=== PATIENT | female | born 1985 | race Caucasian/White ===

== ENCOUNTER → 2017-08-14 | Outpatient (CLI) | payer SELFPAY ==
[~2017-08-14] MED LIST: DIASTAT ACUDIAL10 MG PR; DILANTIN 100MG100 MG PO; KETOROLAC10 MG PO; LORTAB 500 MG-71 TAB PO; MEDROL 4MG. DOSE4 MG PO; PERCOCET 10 MG1 EACH PO; POTASSIUM CHLO10 ME3 PO; PRENATAL1 TA2 PO; TYLENOL ES500 M1 PO; XANAX 1MG TABLET1 MG PO; ZOFRAN ODT8 MG PO
[2017-08-14 14:10] LABS: AMPHETAMINES/METAMPHETAMINES NEGATIVE ng/mL (<1000)
== END ==
LOC: LAB 13:14
PROVIDERS: Emergency Medicine
DX: Z79.899 Other long term (current) drug therapy (principal)

== ENCOUNTER 2017-10-04 09:31 | Emergency (ER) | payer MEDICAID ==
[~2017-10-04] VITALS: Ht 165.1 cm; Wt 66.2 kg
[2017-10-04] MEDS ORDERED: BUPRENORPHINE H1 TAB SL (09:52)
[2017-10-04] MEDS ORDERED: GABAPENTIN300 M1 PO (09:53)
[2017-10-04] MEDS ORDERED: MOTRIN 600MG.600 MG PO (09:53)
[2017-10-04] MEDS ORDERED: AMITRIPTYLINE 550 MG PO (09:54)
[2017-10-04] MEDS ORDERED: VENLAFAXINE HYD75 M1 PO (09:56)
[2017-10-04] MEDS ORDERED: VENLAFAXINE HY150 MG PO (09:56)
[2017-10-04] MEDS ORDERED: LEVETIRACETAM1000 MG PO (09:57)
[2017-10-04] MEDS ORDERED: TERAZOSIN HCL1 MG PO (09:58)
--- OUTSIDE RECORDS SUMMARY | 2017-10-04 09:59 | External Medical Summary Rpt | CCD ---
Author Author , DHARA JULES Address Unknown Phone [email or web address] Providers Care Binder Layer Name Role Phone CLARIBEL MILLS MD, Unavailable Unavailable CLARIBEL MILLS MD Purpose Continuity of Care Document - 01-23-2012 through 2016 Problems Code Diagnosis DOS Provider Status 780.39 780.39 07-01-2013 [facility] Allergies, Adverse Reactions, Alerts Type Drug Allergy Propensity to adverse reactions to drug Adverse Reaction to Substance Substance Reaction Severity Contrast Media, ANAPHYLAXIS Severe Iodine Related Morphine ANGRY Unknown Medications Na ND Rx Da Fi Fi Am Da Di Ph RX Ph St me C No te ll ll ou ys ag ar # ys at rm s nt no ma ic us Or Da si cy ia de te s n re d LO 00 08 0 No RA 64 -2 ZE 16 8- Lo PA 04 20 ng M 82 13 er 2 5 MG Ac /M ti L ve AL Sa 63 08 0 No li 80 -2 ne 70 8- Lo 10 20 ng Fl 07 13 er us 5 h Ac 10 ti ML ve Sy ri ng e KE 00 08 0 No TO 40 -2 RO 93 8- Lo LA 79 20 ng C 50 13 er 30 1 Ac MG ti /M ve L AL PH 00 08 0 No EN 64 -2 YT 12 8- Lo OI 55 20 ng N 54 13 er 50 5 Ac MG ti /M ve L AL SO 00 08 0 No DI 40 -2 UM 97 8- Lo 98 20 ng CH 43 13 er LO 7 RI Ac DE ti ve 0. 9% SO AVILA TI ON Sa 63 08 0 No li 80 -2 ne 70 8- Lo 10 20 ng Fl 07 13 er us 5 h Ac 10 ti ML ve Sy ri ng e Sa 63 08 0 No li 80 -2 ne 70 8- Lo 10 20 ng Fl 07 13 er us 5 h Ac 10 ti ML ve Sy ri ng e Vital Signs 07-01-2013 20:17 Name Value Interpretat Reference Comment ion Range Body 98.4 [degF] Temperature BP 50 mm[Hg] Diastolic BP Systolic 100 mm[Hg] Heart 82 /min Rate/Pulse O2% 98 % Respiratory 18 /min Rate 07-01-2013 17:48 Name Value Interpretat Reference Comment ion Range BP 55 mm[Hg] Diastolic BP Systolic 113 mm[Hg] Heart 98 /min Rate/Pulse O2% 95 % Respiratory 16 /min Rate Results Labs Lab Lab Date Result Refere Interp Status Commen Order Detail nces retati t Range on Urine 9-analyte drugs of abuse screening (08-14-2017 11:30) Comment: Positive urine drug screen samples are stored for 7 days. Comment: Contact the Lab if confirmation of positives is needed. Urine NEGATIV <1000 complet ampheta 017 E ed mine 11:30 NEGATIV screeni E L ng test ng/mL Urine = <200 complet barbitu 017 NEGATIV ed rates 11:30 E ng/mL measure ment by screen Serum = 200 complet or 017 NEGATIV ng/mL ed plasma 11:30 E ng/mL benzodi azepine s measure m Cocaine = <300 complet 017 NEGATIV ed measure 11:30 E ng/g ment (mass/v olume) Methado = <300 complet ne 017 NEGATIV ed measure 11:30 E ng/mL ment (mass/v olume) Opiates = <300 complet 017 NEGATIV ed measure 11:30 E ng/mL ment (mass/v olume) Phencyc = <25 complet lidine 017 NEGATIV ed measure 11:30 E ng/mL ment (mass/v olume) 11-hydr --2 NEGATIV <50 complet oxy 017 E ed delta-9 11:30 NEGATIV E L tetrahy ng/mL drocann abinol Drugs identified in Urine by Screen method (08-14-2017 11:30) Ampheta 10-11-2 NEGATIV <1000 complet mine 017 E ed [Presen 11:30 ce] in Urine by Screen method 11-Hydr --2 NEGATIV <50 complet oxy 017 E ed delta-9 11:30 tetrahy drocann abinol [Presen ce] in Unspeci fied specime n COMPREHENSIVE METABOLIC PANEL (07-01-2013 17:20) Glucose 103 74-106 complet 013 mg/dL ed Bld-mCn 17:20 c BUN 12 7-18 complet Bld-mCn 013 mg/dL ed c 17:20 Creat 0.8 0.6-1.0 complet SerPl-m 013 mg/dL ed Cnc 17:20 GFR 85 59- complet (ESTIMA 013 ML/MIN ed SHEYLA) 17:20 Sodium 140 136-145 complet SerPl-s 013 mmoL/L ed Cnc 17:20 Potassi 4.0 3.5-5.1 complet um 013 mmoL/L ed SerPl-s 17:20 Cnc Chlorid 105 98-107 complet e 013 mmoL/L ed SerPl-s 17:20 Cnc CO2 25 21.0-32 complet SerPl-s 013 mmoL/L .0 ed Cnc 17:20 Calcium 8.7 8.5-10. complet 013 mg/dL 1 ed SerPl-m 17:20 Cnc Prot 7.5 6.4-8.2 complet SerPl-m 013 gm/dL ed Cnc 17:20 Albumin 3.8 3.4-5.0 complet 013 gm/dL ed SerPl-m 17:20 Cnc Globuli 3.7 1.3-3.2 complet n 013 gm/dL ed Ser-mCn 17:20 c Albumin 1.0 UNK 1.1-1.8 complet /Glob 013 ed SerPl-m 17:20 Rto Bilirub 0.4 0.2-1.0 complet 013 mg/dL ed SerPl-m 17:20 Cnc AST 8 U/L 15-37 complet SerPl-c 013 ed Cnc 17:20 ALT 36 U/L 30-65 complet SerPl-c 013 ed Cnc 17:20 ALP 08-28-2 178 U/L 50-136 complet SerPl-c 013 ed Cnc 17:20 CBC with AUTO DIFF (07-01-2013 17:20) WBC # 07-01-2 4.0 4.8-10. complet Bld 013 K/MM3 8 ed Auto 17:20 RBC # 07-01-2 4.20 4.2-5.4 complet Bld 013 M/mm3 ed Auto 17:20 Hgb 2 11.5 12.2-16 complet Bld-mCn 013 g/dL .2 ed c 17:20 Hct Fr 35.1 % 37.0-47 complet Bld 013 .0 ed 17:20 MCV RBC 83.4 fl 82.2-97 complet 013 .8 ed 17:20 MCH RBC 27.4 pg 27-31.2 complet Qn 013 ed Auto 17:20 MEAN 32.9 31.8-35 complet CORPUSC 013 g/dl .4 ed ULAR 17:20 HGB CONC RDW RBC 14.4 % 11.5-17 complet Auto 013 .5 ed 17:20 Platele 279 142-424 complet t Bld 013 K/mm3 ed Ql 17:20 Manual MEAN 8.4 fl 7.4-10. complet PLATELE 013 4 ed T 17:20 VOLUME Granulo 75.2 % 37.0-80 complet cytes 013 .0 ed Fr Bld 17:20 Auto LYMPH % 2 17.9 % 10-50.0 complet 013 ed 17:20 Monocyt 2 4.0 % 1.7-9.3 complet es Fr 013 ed Bld 17:20 Auto Eosinop 07-01-2 2.2 % 0.1-12. complet hil Fr 013 0 ed Bld 17:20 Auto Basophi 07-01-2 0.7 % 0.1-2.0 complet ls Fr 013 ed Bld 17:20 Auto Granulo 07-01-2 3.0 1.8-7.8 complet cytes # 013 K/mm3 ed Bld 17:20 Auto Lymphoc 07-01-2 0.7 0.7-4.5 complet ytes Fr 013 K/mm3 ed Bld 17:20 Auto Monocyt 07-01-2 0.2 0.1-1.0 complet es # 013 K/mm3 ed Bld 17:20 Auto Eosinop 07-01-2 0.1 0.0-0.4 complet hil # 013 K/mm3 ed Bld 17:20 Auto Basophi 07-01-2 0.0 0-0.2 complet ls # 013 K/MM3 ed Bld 17:20 Auto ESR Bld Qn 15M (07-01-2013 17:20) ESR Bld 07-01-2 35 0-20 complet Qn 15M 013 mm/hr ed 17:20 B-HCG Ur Ql (07-01-2013 17:20) B-HCG 2 NEGATIV NEG complet Ur Ql 013 E ed 17:20 URINALYSIS/COMPLETE (07-01-2013 17:20) URINE YELLOW YELLOW complet COLOR 013 ed 17:20 URINE CLEAR CLEAR complet APPEARA 013 ed NCE 17:20 URINE NEGATIV NEG complet GLUCOSE 013 E ed - 17:20 DIPSTIC K URINE NEGATIV NEG complet BILIRUB 013 E ed IN - 17:20 DIPSTIC K URINE 2 NEGATIV NEG complet KETONE 013 E mg/dL ed 17:20 URINE 2 1.025 1.005-1 complet SPECIFI 013 UNK .030 ed C 17:20 GRAVITY URINE NEGATIV NEG complet BLOOD 013 E ed 17:20 URINE 07-01-2 6.0 UNK 5.0-8.5 complet PH 013 ed 17:20 URINE 07-01-2 NEGATIV NEG complet PROTEIN 013 E mg/dL ed - 17:20 DIPSTIC K URINE 07-01-2 0.2 NEG complet UROBILI 013 E.U./dL ed NOGEN - 17:20 DIPSTIC K URINE 07-01-2 NEGATIV NEG complet NITRATE 013 E ed - 17:20 DIPSTIC K URINE 07-01-2 NEGATIV NEG complet LEUK 013 E ed ESTERAS 17:20 E URINE 07-01-2 OCC 0 complet RBC 013 rbc/hpf ed 17:20 URINE 07-01-2 5-10 O complet WBC 013 wbc/hpf ed 17:20 URINE 07-01-2 10-20 0-5 complet SQUAMOU 013 #/hpf ed S CELLS 17:20 URINE 1+ O complet BACTERI 013 ed A 17:20 URINE 3+ OCC complet MUCUS 013 ed 17:20 Reagin Ab [Presence] in Unspecified specimen by VDRL (01-24-2012 08:59) Reagin NON-MANDA complet Ab 012 CTIVE ed [Presen 08:59 ce] in Unspeci fied specime n by VDRL Reagin Ab [Presence] in Unspecified specimen by VDRL (01-24-2012 08:59) COLLECT D. complet OR 012 BRADFOR ed 08:59 D RN ETHNICI WHITE complet TY 012 ed 08:59 PURPOSE DIAGNOS complet OF 012 TIC ed EXAM 08:59 SPECIME BLOOD complet N 012 ed SOURCE 08:59 CHART 402-27- complet NUMBER 012 [id number] ed 08:59 Reagin Pending complet Ab 012 ed [Presen 08:59 ce] in Unspeci fied specime n by VDRL CHLAMYDIA AND GONORRHEA TESTING (01-23-2012 15:55) COLLECT NA complet OR 012 ed 15:55 ETHNICI WHITE, complet TY 012 NON-HIS ed 15:55 PANIC KIT 6-30-12 complet EXPIRAT 012 ed ION 15:55 DATE SYMPTOM NO complet S 012 ed 15:55 REASON VOLUNTE complet FOR 012 ER/MEDI ed REQUEST 15:55 MARY PROBLEM SPECIME URINE complet N 012 ed SOURCE 15:55 PREGNAN NO complet T 012 ed 15:55 CHART NA complet NUMBER 012 ed 15:55 Chlamyd Pending complet ia 012 ed trachom 15:55 atis rRNA [Presen ce] in Unspeci fied specime n by Probe & target amplifi cation method Neisser Pending complet ia 012 ed gonorrh 15:55 oeae rRNA [Presen ce] in Unspeci fied specime n by Probe & target amplifi cation method Encounters Encounter Start End Date Code Location Performer Type Date Emergency WOLF MILLS MD (ER) 3 17:22 3 20:24 [facility]
--- OUTSIDE RECORDS SUMMARY | 2017-10-04 09:59 | External Medical Summary Rpt | CCD ---
Author Author [employer] Organization [employer] Address Unknown Phone Unavailable Purpose Continuity of Care Document - through 2016
--- OUTSIDE RECORDS SUMMARY | 2017-10-04 09:59 | External Medical Summary Rpt | CCD ---
Demographics Preferred Language [place]orese Marital Status Unknown Buddhism Affiliation Unknown Race Unknown Ethnic Group Unknown Author Author , DHARA JULES Address Unknown Phone Immunization No patient found.
--- OUTSIDE RECORDS SUMMARY | 2017-10-04 09:59 | External Medical Summary Rpt ---
Author Author DHARA Jean Baptiste, JAVADLOUIS [employer] Organization [employer] Address Unknown Phone Unavailable Results Drugs identified in Urine by Screen method Observa Value Referen Units Interpr Notes Date tion ce etation Range Positive urine drug screen samples are stored for 7 days. Contact the Lab if confirmation of positives is needed. Ampheta NEGATIV <1000 ng/mL No No Aug 14 mine E informa informa 2017 [Presen tion in tion in 11:30 ce] in source source AM Urine data data by Screen method Barbitura <200 ng/mL No No Aug 14 [place] informati informati 2017 [Mass/vol on in on in 11:30 AM ume] in source source Urine by data data Screen method Benzodiaz 200 ng/mL ng/mL No No Aug 14 epines informati informati 2017 [Mass/vol on in on in 11:30 AM ume] in source source Serum or data data Plasma by Screen method Cocaine <300 ng/g No No Aug 14 [Mass/vol informati informati 2016 ume] in on in on in 11:30 AM Unspecifi source source ed data data specimen Methadone <300 ng/mL No No Aug 14 informati informati 2017 [Mass/vol on in on in 11:30 AM ume] in source source Unspecifi data data ed specimen Opiates <300 ng/mL No No Aug 14 [Mass/vol informati informati 2016 ume] in on in on in 11:30 AM Unspecifi source source ed data data specimen Phencycli <25 ng/mL No No Aug 14 dine informati informati 2017 [Mass/vol on in on in 11:30 AM ume] in source source Unspecifi data data ed specimen 11-Hydr NEGATIV <50 ng/mL No No Aug 14 oxy E informa informa 2017 delta-9 tion in tion in 11:30 source source AM tetrahy data data drocann abinol [Presen ce] in Unspeci fied specime n VALPROIC ACID Observa Value Referen Units Interpr Notes Date tion ce etation Range VALPROI 20.8 50.0 - ug/mL Low No May 10 C ACID, 100.0 informa 2014 SERUM tion in 2:27 PM source data PANEL 9077 Observa Value Referen Units Interpr Notes Date tion ce etation Range GRAM TO NEGATIV No Normal No May 2 STAIN, FOLLOW E informa informa 2015 WOUND tion in tion in 11:53 source source AM data data WOUND SEE NO No Normal NO May 2 ANAEROB BELOW GROWTH informa ANAEROB 2015 IC tion in ES 11:53 CULTURE source ISOLATE AM data D CULTURE SEE NO No Abnorma SOURCE: May 05 , WOUND BELOW GROWTH informa l 2015 tion in WOUNDOR 11:53 AEROBIC source GANISM AM data #1: MODERAT E GROWTH OF COAGULA SE NEGATIV E STAPHYL OCOCCUS GRAM STAIN Observa Value Referen Units Interpr Notes Date tion ce etation Range GRAM NO NEGATIV No Normal NO May 2 STAIN WBC'S,N E informa WBC'SNO 2015 O tion in 11:53 ORGAN.. source ORGANIS AM . data MS SEEN PANEL 4774 Observa Value Referen Units Interpr Notes Date tion ce etation Range OPIATES Negativ <300 ng/mL Normal No Jan 20 e informa 2014 tion in 11:39 source PM data AMPHETA Negativ <1000 ng/mL Normal No Jan 20 MINES e informa 2014 tion in 11:39 source PM data BARBITU Negativ <200 ng/mL Normal No Jan 20 RATES e informa 2014 tion in 11:39 source PM data COCAINE Negativ <300 ng/mL Normal No Jan 20 e informa 2014 tion in 11:39 source PM data BENZODI Negativ <200 ng/mL Normal No Jan 20 AZEPINE e informa 2014 S tion in 11:39 source PM data METHADO Negativ <300 ng/mL Normal No Jan 20 NE e informa 2014 tion in 11:39 source PM data PHENCYC Negativ <25 ng/mL Normal No Jan 20 LIDINE( e informa 2014 PCP) tion in 11:39 source PM data PROPOXY Negativ <300 ng/mL Normal No Jan 20 PHENE e informa 2014 tion in 11:39 source PM data ALCOHOL Negativ <20 mg/dL Normal No Jan 20 e informa 2014 tion in 11:39 source PM data THC Negativ <20 ng/mL Normal No Jan 20 e informa 2014 tion in 11:39 source PM data CREATIN 56.4 >19.9 mg/dL No This Jan 20 INE informa urine 2014 tion in specime 11:39 source n PM data submitt ed as a non-sapna in-of-c ustody was screene d byenzym e immunoa ssay (EIA). Results should be used for clinica l evaluat iononly . Many drug classes , notably ampheta mines, opiates , benzodi azepine s andPCP may report as positiv e due to cross-r eactivi ty with certain OTC, herbal, or prescri ption medicat ions. Confirm ation testing is recomme nded for anyposi tive EIA result. CBC W/ Diff, Platelets Observa Value Referen Units Interpr Notes Date tion ce etation Range WBC 4.73 3.40 - x10(3)/ No No Dec 30 11.80 uL informa informa 2014 tion in tion in 5:56 PM source source data data RBC 4.01 3.60 - x10(6)/ No No b 5.50 uL informa informa 2014 tion in tion in 5:56 PM source source data data HGB 12.8 11.5 - gm/dL No No Dec 30 15.6 informa informa 2014 tion in tion in 5:56 PM source source data data HCT 35.9 34.5 - % No No Dec 30 46.5 informa informa 2014 tion in tion in 5:56 PM source source data data MCV 89.5 80.0 - fL No No Dec 30 100.0 informa informa 2014 tion in tion in 5:56 PM source source data data MCH 31.9 25.0 - pg No No Dec 30 34.1 informa informa 2014 tion in tion in 5:56 PM source source data data MCHC 35.7 29.0 - gm/dL High No Dec 30 35.0 informa 2014 tion in 5:56 PM source data RDW 12.0 10.9 - % No No Dec 30 16.9 informa informa 2015 tion in tion in 5:56 PM source source data data POLYS 62.3 36.0 - % No No Feb 26 78.0 informa informa 2015 tion in tion in 5:56 PM source source data data POLYS, 2.95 1.22 - x10(3)/ No No Feb 26 ABS. 9.20 uL informa informa 2015 COUNT tion in tion in 5:56 PM source source data data LYMPHS 25.2 12.0 - % No No Feb 26 48.0 informa informa 2015 tion in tion in 5:56 PM source source data data LYMPHS, 1.19 0.41 - x10(3)/ No No Feb 26 ABS. 5.66 uL informa informa 2015 COUNT tion in tion in 5:56 PM source source data data MONOS 8.7 0.0 - % No No Feb 26 13.0 informa informa 2014 tion in tion in 5:56 PM source source data data MONOS, 0.41 0.17 - x10(3)/ No No Feb 26 ABS. 1.42 uL informa informa 2015 COUNT tion in tion in 5:56 PM source source data data EOS 3.0 0.0 - % No No Feb 26 8.0 informa informa 2015 tion in tion in 5:56 PM source source data data EOS, 0.14 0.03 - x10(3)/ No No Feb 26 ABS. 0.94 uL informa informa 2015 COUNT tion in tion in 5:56 PM source source data data BASOS 0.6 0.0 - % No No Feb 26 2.0 informa informa 2015 tion in tion in 5:56 PM source source data data BASOS, 0.03 0.00 - x10(3)/ No No Feb 26 ABS. 0.24 uL informa informa 2015 COUNT tion in tion in 5:56 PM source source data data IMMATUR 0.2 0.0 - % No No Feb 26 E 1.6 informa informa 2015 GRANULO tion in tion in 5:56 PM CYTES source source data data PLATELE 241 144 - x10(3)/ No No Feb 26 T COUNT 400 uL informa informa 2015 tion in tion in 5:56 PM source source data data MPV 11.0 8.2 - fL No No Feb 26 11.9 informa informa 2014 tion in tion in 5:56 PM source source data data MAGNESIUM, SERUM Observa Value Referen Units Interpr Notes Date tion ce etation Range MAGNESI 1.8 1.6 - mg/dL No No Feb 26 UM 2.6 informa informa 2014 tion in tion in 5:56 PM source source data data Comprehensive Metabolic Panel Observa Value Referen Units Interpr Notes Date tion ce etation Range Total 7.2 5.9 - g/dL No No Feb 26 Protein 8.4 informa informa 2015 tion in tion in 5:56 PM source source data data Albumin 4.6 3.5 - g/dL No No Feb 26 5.2 informa informa 2015 tion in tion in 5:56 PM source source data data Globuli 2.6 1.7 - g/dL No No Feb 26 n 3.7 informa informa 2014 tion in tion in 5:56 PM source source data data A/G 1.8 1.1 - No No No Feb 26 Ratio 2.9 informa informa informa 2015 tion in tion in tion in 5:56 PM source source source data data data Sodium 141 133 - mmol/L No No Feb 26 145 informa informa 2015 tion in tion in 5:56 PM source source data data Potassi 3.8 3.3 - mmol/L No No Feb 26 um 5.3 informa informa 2014 tion in tion in 5:56 PM source source data data Chlorid 105 96 - mmol/L No No Feb 26 e 108 informa informa 2014 tion in tion in 5:56 PM source source data data CO2 22 22 - 29 mmol/L No No Feb 26 informa informa 2015 tion in tion in 5:56 PM source source data data BUN 15 6 - 20 mg/dL No No Feb 26 informa informa 2015 tion in tion in 5:56 PM source source data data Creatin 0.67 0.60 - mg/dL No No Feb 26 ine 1.10 informa informa 2014 tion in tion in 5:56 PM source source data data e-GFR 103 >60 mL/min No No Dec 30 informa informa 2014 tion in tion in 5:56 PM source source data data e-GFR, 125 >60 mL/min No No Dec 30 informa informa 2014 tion in tion in 5:56 PM Erna source source n data data BUN/Cre 22.4 10.0 - No No No Dec 30 at 28.0 informa informa informa 2014 Ratio tion in tion in tion in 5:56 PM source source source data data data Calcium 9.4 8.6 - mg/dL No No Dec 30 10.4 informa informa 2014 tion in tion in 5:56 PM source source data data Bilirub 0.4 <1.2 mg/dL No NOTE: Dec 30 in, informa New 2015 Total tion in referen 5:56 PM source ce data range for Bilirub in, Total effecti ve 20 15. Alk 113 40 - U/L No No Dec 30 Phos 156 informa informa 2015 tion in tion in 5:56 PM source source data data AST 15 <32 U/L No No Dec 30 informa informa 2015 tion in tion in 5:56 PM source source data data ALT 14 <33 U/L No No Dec 30 informa informa 2015 tion in tion in 5:56 PM source source data data Glucose 91 70 - 99 mg/dL No No Dec 30 informa informa 2015 tion in tion in 5:56 PM source source data data KEPPRA LEVEL (LEVETIRACETAM) Observa Value Referen Units Interpr Notes Date tion ce etation Range KEPPRA 41.9 6.0 - ug/mL No NOTE: Dec 30 LEVEL 46.0 informa Toxic 2015 tion in range 5:56 PM source has not data been establi shed. Reagin Ab [Presence] in Unspecified specimen by VDRL Observa Value Referen Units Interpr Notes Date tion ce etation Range COLLECT D. No No No No Jan 23 OR BRADFOR informa informa informa informa 2012 D RN tion in tion in tion in tion in 8:59 AM source source source source data data data data ETHNICI WHITE No No No No Jan 23 TY informa informa informa informa 2012 tion in tion in tion in tion in 8:59 AM source source source source data data data data PURPOSE DIAGNOS No No No No Jan 23 OF TIC informa informa informa informa 2012 EXAM tion in tion in tion in tion in 8:59 AM source source source source data data data data SPECIME BLOOD No No No No Jan 23 N informa informa informa informa 2012 SOURCE tion in tion in tion in tion in 8:59 AM source source source source data data data data CHART 402-27- No No No No Jan 23 NUMBER [id number] informa informa informa informa 2012 tion in tion in tion in tion in 8:59 AM source source source source data data data data Reagin NON-MANDA No No No METHOD Jan 23 Ab [address]IVE informa informa informa OF 2012 [Presen tion in tion in tion in ANALYSI 8:59 AM ce] in source source source S: Unspeci data data data VDRLNOR fied MAL specime RANGE: n by NON VDRL REACTIV E\.br\T his report contain s patient informa tion that must be protect ed in accorda nce with the Health Insuran ce Portabi lity and Account ability Act. Reagin Ab [Presence] in Unspecified specimen by VDRL Observa Value Referen Units Interpr Notes Date tion ce etation Range COLLECT D. No No No No Jan 23 OR BRADFOR informa informa informa informa 2012 D RN tion in tion in tion in tion in 8:59 AM source source source source data data data data ETHNICI WHITE No No No No Jan 23 TY informa informa informa informa 2012 tion in tion in tion in tion in 8:59 AM source source source source data data data data PURPOSE DIAGNOS No No No No Jan 23 OF TIC informa informa informa informa 2012 EXAM tion in tion in tion in tion in 8:59 AM source source source source data data data data SPECIME BLOOD No No No No Jan 23 N informa informa informa informa 2012 SOURCE tion in tion in tion in tion in 8:59 AM source source source source data data data data CHART 402-27- No No No No Jan 23 NUMBER [id number] informa informa informa informa 2012 tion in tion in tion in tion in 8:59 AM source source source source data data data data Reagin Pending No No No \.br\Th Jan 23 Ab informa informa informa is 2012 [Presen tion in tion in tion in report 8:59 AM ce] in source source source contain Unspeci data data data s fied patient specime n by informa VDRL tion that must be protect ed in accorda nce with the Health Insuran ce Portabi lity and Account ability Act. CHLAMYDIA AND GONORRHEA TESTING Observa Value Referen Units Interpr Notes Date tion ce etation Range COLLECT NA No No No No Jan 22 OR informa informa informa informa 2012 tion in tion in tion in tion in 3:55 PM source source source source data data data data ETHNICI WHITE, No No No No Jan 22 TY NON-HIS informa informa informa informa 2012 PANIC tion in tion in tion in tion in 3:55 PM source source source source data data data data KIT 6-30-12 No No No No Jan 22 EXPIRAT informa informa informa informa 2012 ION tion in tion in tion in tion in 3:55 PM DATE source source source source data data data data SYMPTOM NO No No No No Jan 22 S informa informa informa informa 2012 tion in tion in tion in tion in 3:55 PM source source source source data data data data REASON VOLUNTE No No No No Jan 22 FOR ER/MEDI informa informa informa informa 2012 REQUEST MARY tion in tion in tion in tion in 3:55 PM PROBLEM source source source source data data data data SPECIME URINE No No No No Jan 22 N informa informa informa informa 2012 SOURCE tion in tion in tion in tion in 3:55 PM source source source source data data data data PREGNAN NO No No No No Jan 22 T informa informa informa informa 2012 tion in tion in tion in tion in 3:55 PM source source source source data data data data CHART NA No No No No Jan 22 NUMBER informa informa informa informa 2012 tion in tion in tion in tion in 3:55 PM source source source source data data data data Chlamyd Pending No No No No Jan 22 ia informa informa informa informa 2012 trachom tion in tion in tion in tion in 3:55 PM atis source source source source rRNA data data data data [Presen ce] in Unspeci fied specime n by Probe & target amplifi cation method Neisser Pending No No No \.br\Jan 22 ia informa informa informa is 2012 gonorrh tion in tion in tion in report 3:55 PM oeae source source source contain rRNA data data data s [Presen patient ce] in Unspeci informa fied tion specime that n by must be Probe & target protect ed in amplifi accorda cation nce method with the Health Insuran ce Portabi lity and Account ability Act.
--- OUTSIDE RECORDS SUMMARY | 2017-10-04 09:59 | External Medical Summary Rpt | CCD ---
Demographics Preferred Language Paraguayan Marital Status Unknown Jain Affiliation Unknown Race Unknown Ethnic Group Unknown Author Author , DHARA JULES Address Unknown Phone Immunization No patient found.
--- OUTSIDE RECORDS SUMMARY | 2017-10-04 09:59 | External Medical Summary Rpt | CCD ---
Author Author , DHARA JULES Address Unknown Phone [email or web address] Care Team Providers Care Superintendent Generating [employer] Name Role Phone CLARIBEL MILLS MD, Unavailable Unavailable CLARIBEL MILLS MD Purpose Continuity of Care Document - 01-23-2012 through 2016 Problems Code Diagnosis DOS Provider Status 780.39 780.39 07-01-2013 [facility] Allergies, Adverse Reactions, Alerts Type Drug Allergy [...] MILLS MD (ER) 3 17:22 3 20:24 [facility]
[2017-10-04 10:07] LABS: LYMPH # 0.4 K/mm3 (0.7-4.5); LYMPH % 2.5 % (10-50.0)
[2017-10-04 10:10] LABS: HEMOGLOBIN 15.7 g/dL (12.2-16.2)
[2017-10-04 10:19] LABS: B-HCG SERUM PREGNANCY (RAPID) NEGATIVE (NEG)
[2017-10-04 10:20] LABS: STREP SCREEN (RAPID) NEGATIVE
--- NOTE | 2017-10-04 10:37 | Emergency Room Report ---
History of Present Illness Time Seen by [id number] Presenting Problem in Triage Pt arrived:Wheelchair Presenting Problem:NAUSEA VOMITING AND DIARRHEA WITH CENTRAL LOWER ABDOMINAL PAIN THAT STARTED AT 0500 Onset of symptoms date/time:/ or onset unknown for:MEDICAL HX UNKNOWN Treatment Prior to Arrival: ACUTE CARE REGISTERED NURSE Provided by: Sepsis Risk Assessment: Temp: 97.6 B/P: 123/79 MAP: 93 Pulse: 110 Resp: 20 Recent fever? N Clinical Suspician of Infection? Y Mental Status: 1 - Regular (Normal Baseline) Sepsis Risk:Possible Sepsis Risk Have you (or family members/close friends) recently traveled outside the [place]? N If Yes, where/when: Have you had exposure to infectious disease within the past month? N TB? Other? Specify: Cramping abdominal pain since yesterday, having vomiting and diarrhea overnight. No blood from above or below. Underwent dental extraction yesterday per Dr. Coleman. No gingival edema today. Had fever prior to dental extraction. Is not currently on antibiotic therapy. No urinary sx. Has a Mirena. ALLERGIES Coded Allergies: morphine (Mild, 10/04/17) Uncoded Allergies: IV CONTRAST (Mild, 10/04/17) Home Medications Reported Medications BUPRENORPHINE HCL/NALOXONE HCL (Buprenorphin-Naloxon 8-2 MG Sl) 1 TAB SL TID #18 IBUPROFEN (Motrin 600MG) 600 MG PO Q6HP PRN PAIN #12 Gabapentin 300 MG PO BID #90 Amitriptyline Hcl (Amitriptyline) 50 MG PO QHS #30 VENLAFAXINE HCL (Venlafaxine HCl ER) 75 MG PO DAILY #30 VENLAFAXINE HCL (Venlafaxine HCl ER) 150 MG PO DAILY #30 Levetiracetam 1,000 MG PO TID #60 TERAZOSIN HCL (Terazosin HCl) 1 MG PO BEDTIME #30 History Medical History General CAD? No Angina: No DE: No Hypertension? No Hyperlipidemia? No CHF? No DVT? No PE? No COPD? No Asthma? Yes Anemia? No GERD? No Gastric ulcers? No GI Bleed? No Hernia? No Thyroid Problems? No Hypothyroidism? No CVA? No Seizures? Yes Diabetes? No Renal Insuffiency? No End Stage Renal Disease? No UTI? Yes Stones? Yes BPH? No GB Disease: No Nephritic Syndrome? No Asplenia? No Hepatitis? No Sickle Cell Disease? No Arthritis? No Migraines? Yes Cataracts? No Glaucoma? No MRSA? No HIV? No TB? No Anxiety? No Depression? No Cancer? No Immunization Hx DT/Tetanus UNKNOWN Flu UNKNOWN Pneumonia NEVER Surgical Hx Previous Surgery?Y APPENDECTOMY D & C KNEE SURGERY L KNEE EXP. 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 Week Ago Family History Family Hx Diabetes Yes CAD Yes Hypertension Yes Hyperlipidemia Yes Cancer Yes TB No Social History Smoking Hx Smoker: Current Every Day Smoker Tobacco: Yes Type Cigarettes Packs/day < 1 Pack Alcohol Alcohol: No Review of Systems All Other Systems Reviewed and Negative Constitutional see HPI Gastrointestinal see HPI Physical Exam Vital Signs Vital Signs Date Time Temp Pulse Resp B/P Pulse O2 O2 Flow FiO2 Ox Delivery Rate 10/04 1136 107 20 92/58 97 10/04 0935 97.6 110 20 123/79 99 General Appearance normal appearance, WD/WN, no apparent distress Eye Exam - bilateral eye normal exam, bilateral eye PERRL, bilateral eye EOMI Ear, Nose, Throat OP wet; lips slightly dry; gingivum reveals recent extraction canine; no edema. Neck normal inspection, non-tender, supple, full range of motion Respiratory Status Yes: trachea midline, chest symmetrical, non tender chest. No: respiratory distress, tender on palpation, use of accessory muscles, pain on inspiration, pain on expiration, productive cough, non productive cough. Lung Sounds bilateral: normal breath sounds, lungs clear. Cardiovascular normal exam, regular rate/rhythm, no peripheral edema, no gallop, no JVD, no murmur, no rub, normal peripheral pulses Gastrointestinal normal bowel sounds, normal exam, non tender, soft, no organomegaly, no pulsatile mass, no guarding, no rebound Extremities normal range of motion Strength 5 Upper Ext (L), 5 Upper Ext (R), 5 Lower Ext (L), 5 Lower Ext (R) Neurologic alert, [employer] judicial law [employer] II-XII nml as tested, normal exam, no motor/sensory deficits, oriented x 3 Glascow Coma Scale Glascow Coma Scale Response Value EYE response: 4 Spontaneously 4 MOTOR response: 6 OBEYS 6 VERBAL response: 5 Oriented & Converses 5 Total 15 Skin intact, normal color, warm/dry Medical Decision Making LABS/Meds/Orders Pt receiving controlled substance in ED? No Results/Orders Laboratory Tests 10/04/17 0950: Lactic Acid 1.4 10/04/17 0950: Sodium 139, Potassium 3.8, Chloride 105, Carbon Dioxide 23, BUN 14, Creatinine 0.7, Estimated Creat Clear 120, Estimated GFR (MDRD) 96, Glucose 128 H, Calcium 8.6, Total Bilirubin 0.4, AST 168 H, ALT 90 H, Alkaline Phosphatase 162 H, Total Protein 7.9, Albumin 3.7, Globulin 4.2 H, Albumin/Globulin Ratio 0.9 L, Amylase 42, Lipase 301, WBC 14.5 H, RBC 5.15, Hgb 15.7, Hct 47.5 H, MCV 92.3, RDW 11.6, Plt Count 275, MPV 8.5, Gran % 90.3 H, Gran # 13.1 H, Total Counted 100, Lymphocytes % 2.5 L, Monocytes % 1.6 L, Eosinophils % 5.5, Basophils % 0.2, Neutrophils 93 H, Lymphocytes (Manual) 2 L, Lymphocytes # 0.4 L, Monocytes (Manual) 2, Monocytes # 0.2, Eosinophils # 0.8 H, Eosinophils # ( Manual) 2, Basophils # 0.0, Basophils # (Manual) 1, Platelet Estimate NORMAL, PUBS MCHC 32.7, MCH 30.2, Influenza Type A Ag NOT DETECTED, Influenza Type B Ag NOT DETECTED Current Medication Orders Sig/Neo Start time Last Medication Dose Route Stop Time Status Admin Lactated Ringer's 1,000 ML .Q1H1M 10/04 1215 CAN IV Lactated Ringer's 1,000 ML .Q1H1M 10/04 1215 AC IV 10/04 1315 Sodium Chloride 10 ML PRN PRN 10/04 1215 DC IV 10/05 1207 Sodium Chloride 10 ML PRN PRN 10/04 1215 AC IV 10/05 1214 Lactated Ringer's 1,000 ML .STK-MED ONE 10/04 1211 DC IV Ondansetron HCl 4 MG ONCE ONE 10/04 1000 DC 10/04 IV 10/04 1001 1008 Sodium Chloride 10 ML PRN PRN 10/04 1000 AC IV 10/05 0957 Sodium Chloride 1,000 ML .Q1H1M 10/04 1000 DC 10/04 IV 10/04 1100 1010 Sodium Chloride 10 ML PRN PRN 10/04 1000 AC IV 12/02 0958 Sodium Chloride 1,000 ML .STK-MED ONE 10/04 0939 DC IV Ondansetron HCl 0 .STK-MED ONE 10/04 938 DC .ROUTE Orders Procedure Date/time Status DIET-NOTHING BY MOUTH 10/04 L Active STREP SCREEN THROAT 10/04 958 Complete SERUM , QUAL 10/[address] ABD/PELVIS REQ 10/04 957 Complete IV SALINE LOCK 10/04 957 Active CULTURE, BLOOD 10/04 957 Active LIPASE 10/04 957 Complete LACTIC ACID 10/04 957 Complete INFLUENZA A&B ANTIGENS 10/04 957 Complete CBC WITH AUTO DIFF 10/04 957 Complete CHEM 12 PROFILE 10/04 957 Complete AMYLASE 10/04 957 Complete CULTURE, THROAT 10/04 0950 Active DIFFERENTIAL-WBC 10/04 950 Complete XRAY/CT/US XRAY/CT/US CT abdomen, pelvis CT interpretation by reviewed by me (report reviewed) Time results known: 1233 CT Results abnormal (entercolitis) Progress ED Progress Notes Date 10/04/17 Time 1203 Comment Multiple diarrhea stools are precluding the opportunity to do CT scan currently. Departure Departure Time of Disposition 1233 Disposition DC Home or Self Care(routine) Clinical Impression Primary Impression: Gastroenteritis Condition STABLE Referrals Kenyetta RAMACHANDRAN,Davon Nicole (Family) Patient Instructions Clear Liquid Diet Additional Instructions Clear liquids, Rx Zofran, see Dr. Kumari for follow up in one to three days. Discharge Counseling Counseled pt/family regarding diagnosis, test results, medications/RX, home care, follow up needs Prescriptions Current Visit Scripts Ondansetron (Zofran 4MG Odt) 4 MG PO Q6HP PRN NAUSEA AND VOMITING #6 ODT ED Critical Care Critical Care No at 1234
[2017-10-04 10:40] LABS: NEUTROPHILS 93 % (42-76)
--- NOTE | 2017-10-04 12:17 | RADIOLOGY REPORT PS360 ---
CT ABD PELVIS W/O CONTRAST CLINICAL INDICATION: ABD PAIN W N/V/D ORDERING PHYSICIAN: Marisabel Pena MD PATIENT AGE: 32 years COMPARISON: 01/14/2012 TECHNIQUE: Axial images obtained with sagittal and coronal reformats. PROCEDURE: Oral Contrast: None IV Contrast: None . FINDINGS: There is a calcified granuloma in the right middle lobe as well as 2 small noncalcified nodules in the right upper lobe anteriorly at 3 and 4 mm. Nonspecific and are too small to characterize. Probable focal fatty infiltration of the liver noted along the falciform ligament region. The spleen and adrenal glands and pancreas are unremarkable. The gallbladder is distended. No renal calculi or ureteral calculi or hydronephrosis evident. Prior appendectomy. The bowel gas pattern is nonspecific with fluid-filled loops of small and large bowel. There is some mild thickening of jejunal loops. Enterocolitis is considered. No definite transition point There is an IUD present. No focal inflammatory changes are evident within the pelvis. No acute bony anomalies. IMPRESSION: Fluid-filled loops of small and large bowel suggestion of some small bowel wall thickening suggesting enterocolitis Other nonacute findings as described above
[2017-10-04] MEDS ORDERED: ZOFRAN ODT4 MG PO (12:34)
[2017-10-04 13:21] VITALS: BP 103/67
== END 2017-10-04 13:23 | disposition home or self-care (01) ==
LOC: ER 09:31
PROVIDERS: Emergency Medicine
DX: K52.9 Noninfective gastroenteritis and colitis, unspecified (principal); Z88.6 Allergy status to analgesic agent; J45.909 Unspecified asthma, uncomplicated; R56.9 Unspecified convulsions; F17.210 Nicotine dependence, cigarettes, uncomplicated
CPT/HCPCS: J2405